=== PATIENT | female | born 1965 | race American Indian/Alaskan Native ===

== ENCOUNTER 2022-01-28 06:04 | Day surgery (SDC) | payer BC ==
[2022-01-28] MEDS ORDERED: LACTATED RINGERS 1,000 ML ONE (06:46)
--- NOTE | 2022-01-28 07:25 | Anesthesia Day of Surgery ---
Anesthesia Day of Surgery - Day of Surgery Patient Examined: Yes Patient H&P Reviewed: Yes Patient is NPO: Yes
--- NOTE | 2022-01-28 07:25 | Anesthesia Consultation ---
Anesthesia Consult and Med Hx Date of service: 01/28/22 - Airway Anesthetic Teeth Evaluation: Good, Crowns, Bridges (bottom right) ROM Head & Neck: Adequate Mental/Hyoid Distance: Adequate Mallampati Class: Class II Intubation Access Assessment: Probably Good - Pre-Operative Health Status ASA Pre-Surgery Classification: ASA2 Proposed Anesthetic Plan: General - Cardiovascular System Hx Coronary Artery Disease: No (high cholesterol) - Central Nervous System Hx Back Pain: Yes (arthritis, s/p lower back fusion) Hx Psychiatric Problems: No - Hematic Hx Sickle Cell Disease: Yes (Trait only) - Other Systems Hx Alcohol Use: Yes (Occas) Hx Cancer: No
[2022-01-28] MEDS ORDERED: LACTATED RINGERS 1,000 ML IV SCH (07:30)
[2022-01-28] MEDS ORDERED: ONDANSETRON 4 MG/2 ML INJ ONE (07:44)
[2022-01-28] MEDS ORDERED: propofoL 200 MG/20 ML VIAL IV ONE (07:44)
[2022-01-28] MEDS ORDERED: HYDROmorphone 1 MG/1 ML INJ ONE (07:44)
[2022-01-28] MEDS ORDERED: ePHEDrine SULFATE 50 MG/1 ML INJ ONE (07:45)
[2022-01-28] MEDS ORDERED: ceFAZolin/Water 2 GM/20 ML 2 GM/20 ML SYRINGE IV ONE (07:58)
[2022-01-28] MEDS ORDERED: EPINEPHrine 30 MG/30 ML INJ IV ONE (07:59)
[2022-01-28] MEDS ORDERED: BUPIVACAINE-EPINEPHRINE/PF 0.5%-1:200,000 (30 ML) VIAL INFILTRATI ONE ×2 (07:59→09:35)
[2022-01-28] MEDS ORDERED: GABAPENTIN 300 MG CAP PO NR (08:00)
[2022-01-28] MEDS ORDERED: FAMOTIDINE 20 MG/2 ML INJ IV NR (08:00)
[2022-01-28] MEDS ORDERED: MIDAZOLAM 2 MG/2 ML INJ IV NR (08:00)
[2022-01-28] MEDS ORDERED: SCOPOLAMINE TRANSDERMAL PATCH 72 HR TD NR (08:00)
[2022-01-28] MEDS ORDERED: CELECOXIB 200 MG CAP PO NR (08:00)
[2022-01-28] MEDS ORDERED: EPINEPHrine/PF 1 MG/1 ML INJ IV ONE (09:05)
[2022-01-28] MEDS ORDERED: SODIUM CHLORIDE 0.9% IRRIG SOLN 3000 ML IR ONE (09:07)
--- NOTE | 2022-01-28 09:29 | Discharge Summary ---
Short Stay Discharge Plan Weight Bearing Status: Weight Bear as Tolerated Wound: remove dressing (48 hours) Follow up with: ILANA BARBA MD [Primary Care Provider] - 7 Days MIRIAN REARDON II, MD [Staff Physician] - 14 Days
[2022-01-28] MEDS: HYDROmorphone 0.5 MG/0.5 ML INJ IV PRN ×2 (09:57→10:36)
[2022-01-28 11:21] VITALS: BP 126/60
--- NOTE | 2022-01-28 12:05 | Operative Report ---
DATE OF SURGERY: 01/28/2022 PREOPERATIVE DIAGNOSIS: Left hip trochanteric bursitis. POSTOPERATIVE DIAGNOSIS: Left hip trochanteric bursitis. PROCEDURE PERFORMED: Left hip arthroscopy with trochanteric bursectomy and IT band release. SURGEON: Kyrie Martinez II, MD [employer] OPERATOR: Rusty Colon ANESTHESIA: General. COMPLICATIONS: None. DRAINS: None. SPECIMENS: None. TOURNIQUET TIME: Not applicable. PREOPERATIVE MEDICATIONS: Ancef 2 grams. INTRAOPERATIVE MEDICATIONS: 0.25% Marcaine with epinephrine, 20 mL. EXAMINATION UNDER ANESTHESIA: Full range of motion and stability. OPERATIVE FINDINGS: Include significant bursal inflammation in the trochanteric bursa and tight IT band. INDICATIONS: The patient is a 57-year-old female with a long history of pain in her left trochanteric bursa. The patient failed conservative treatment measures in the form of injections, physical therapy, anti-inflammatory medications. Therefore, recommended patient undergo surgical management in the form of arthroscopic IT band release and debridement of the trochanteric bursa. Risks, benefits and limitations of surgery were discussed with the patient including bleeding, infection, injury to nerves, blood vessel, need for operation. The patient appeared to understand risks and consented to undergo surgery. TECHNIQUE: In the preoperative holding area, site was marked with surgical marking pen, extremity was prepped. The patient was brought to the operating room, was prepped and draped in sterile fashion in a lateral decubitus position. All bony prominences were well padded and axillary roll was placed. Time-out was performed confirming the left side as the correct side. The trochanteric bursa was injected with normal saline followed by placement of proximal and distal incision. Arthroscope was introduced. The subcutaneous fat was debrided and IT band was identified. Using Arthrocare wand, IT band was incised in line with its fibers revealing the underlying trochanteric bursa where there was noted to be significant bursal inflammation. Using Arthrocare wand and shaver, the trochanteric bursa was debrided. Internal and external rotation of the hip was performed in order to access the entirety of the trochanteric bursa. Arthroscope was removed. Incisions were closed with 3-0 nylon. Sterile dressing was applied. The patient was awakened and taken to recovery room in stable condition. POSTOPERATIVE PLAN: The patient will be weightbear as tolerated. Physical therapy to work on range of motion exercises. I will see the patient back for a followup visit 2 weeks postop. TID: [id number] RECEIPT: [id number] ROYA/ARTI/ADA MTDD
--- NOTE | 2022-01-28 13:04 | Post Anesthesia Evaluation ---
- Post Anesthesia Evaluation Patient Participated: Yes Airway Patent: Yes Stable Respiratory Function: Yes Nausea/Vomiting: No Temp > 96.8F: Yes Pain Manageable: Yes Adequeate Hydration: Yes Anesthesia Complications: No Block Receding Appropriately: Not Applicable Patient on Ventilator: No
== END 2022-01-28 11:15 | disposition home or self-care (01) ==
LOC: OR 06:04
PROVIDERS: ATTEND Orthopaedic Surgery Sports Medicine
DX: M70.62 Trochanteric bursitis, left hip (principal); M16.12 Unilateral primary osteoarthritis, left hip; E78.00 Pure hypercholesterolemia, unspecified; Z88.8 Allergy status to other drugs, medicaments and biological substances; Z79.899 Other long term (current) drug therapy; Z72.89 Other problems related to lifestyle; Z98.890 Other specified postprocedural states
CPT/HCPCS: 29999; J0171; J0690; J1170; J2250; J2405; J2704; J3490; J7120